=== PATIENT | female | born 1990 | race American Indian/Alaskan Native ===

== ENCOUNTER 2020-08-19 00:26 | Emergency (ER) | payer SELFPAY ==
[2020-08-19 01:54] LABS: Bacteria,Urine 1+ /HPF (Negative); Bilirubin,Urine NEG (Negative); Blood,Urine LG (Negative); Color,Urine Red (Yellow); HCG Qualitative,Urine Negative (Negative); Urobilinogen,Urine < 2.0 mg/dL (<2.0)
[2020-08-19 01:55] LABS: RBC,Urine > 182.0 /HPF (0.0-6.0); WBC,Urine > 182.0 /HPF (0.0-6.0)
[2020-08-19 04:15] VITALS: BP 107/69
--- NOTE | 2020-08-19 04:18 | Emergency Department Report ---
ED Female HPI - General Chief complaint: Urogenital-Female Stated complaint: FREQUENT URINATION/VAGINAL BLEEDING Source: patient Mode of arrival: Ambulatory Limitations: No Limitations - History of Present Illness Initial comments: 29-year-old -[place] female presents to the emergency room for 2-day history of suprapubic pain and urinary frequency. Denies any dysuria. Denies any vaginal discharge no vaginal bleeding. Having chills no fever has having nausea no vomiting feeling kind of weak and malaise. Denies any past medical history. Takes no medications on a daily basis and has no known drug allergies Complaint: dysuria Onset/Timin -: days(s) Location: suprapubic Radiation: non-radiating Severity scale (0 -10): 0 Consistency: intermittent Improves with: none Worsens with: urination Are you Now?: No Last Menstrual Period: 08/13/20 EDC: 05/20/21 - Related Data Previous Rx's Medication Instructions Recorded Last Taken Type Nitrofurantoin Johnston/M-Cryst 100 mg PO Q12HR 10 Days #20 capsule 08/19/20 Unknown Rx [Macrobid CAP] Allergies Allergy/AdvReac Type Severity Reaction Status Date / Time No Known Allergies Allergy Verified 08/19/20 01:08 ED Review of Systems ROS: Stated complaint: FREQUENT URINATION/VAGINAL BLEEDING Other details as noted in HPI Comment: All other systems reviewed and negative ED Past Medical Hx - Past Medical History Previous Medical History?: No - Surgical History Past Surgical History?: No - Social History Smoking Status: Never Smoker Substance Use Type: None - Medications Home Medications: Home Medications Medication Instructions Recorded Confirmed Last Taken Type Nitrofurantoin Johnston/M-Cryst 100 mg PO Q12HR 10 Days #20 capsule 08/19/20 Unknown Rx [Macrobid CAP] ED Physical Exam - General Limitations: No Limitations General appearance: alert, in no apparent distress - Head Head exam: Present: atraumatic, normocephalic - Eye Eye exam: Present: normal appearance - ENT ENT exam: Present: normal exam, mucous membranes moist, normal external ear exam - Neck Neck exam: Present: normal inspection, full ROM - Respiratory Respiratory exam: Absent: accessory muscle use - Cardiovascular Cardiovascular Exam: Present: regular rate - GI/Abdominal GI/Abdominal exam: Present: soft, normal bowel sounds. Absent: distended, tenderness, guarding - Extremities Exam Extremities exam: Present: normal inspection - Back Exam Back exam: Present: normal inspection - Neurological Exam Neurological exam: Present: alert, oriented X3, normal gait - Psychiatric Psychiatric exam: Present: normal affect, normal mood - Skin Skin exam: Present: warm, dry, intact, normal color. Absent: rash ED Medical Decision Making - Medical Decision Making 29-year-old -[place] female presents to the emergency room for 2-day history of suprapubic pain and urinary frequency. Denies any dysuria. Denies any vaginal discharge no vaginal bleeding. Having chills no fever has having nausea no vomiting feeling kind of weak and malaise. Denies any past medical history. Takes no medications on a daily basis and has no known drug allergies Patient has a urinary tract infection will treat with Macrobid. Instructed patient to increase her fluid intake. Void after intercourse. Follow-up with [facility] which is her primary care provider. Critical care attestation.: If time is entered above; I have spent that time in minutes in the direct care of this critically ill patient, excluding procedure time. ED Disposition Clinical Impression: UTI (urinary tract infection) Qualifiers: Hematuria presence: with hematuria Disposition: DC- TO HOME OR SELFCARE Is pt being admited?: No Does the pt Need Aspirin: No Condition: Stable Instructions: Urinary Tract Infection, Adult, [id number] Additional Instructions: Complete antibiotics as prescribed. Increase your fluid intake. Urinate after intercourse. Tylenol or ibuprofen as needed for pain. Prescriptions: Nitrofurantoin Johnston/M-Cryst [Macrobid CAP] 100 mg PO Q12HR 10 Days #20 capsule Referrals: [facility] [Outside] - 3-5 Days
== END 2020-08-19 04:30 | disposition home or self-care (01) ==
LOC: ED 00:26
DX: N39.0 Urinary tract infection, site not specified (principal); Z79.899 Other long term (current) drug therapy
CPT/HCPCS: 81001; 81025; 82962